=== PATIENT | male | born 1965 | race Caucasian/White ===

== ENCOUNTER 2017-01-11 10:47 | Day surgery (SDC) | payer MEDICAID ==
[~2017-01-11] VITALS: Ht 160 cm; Wt 86.2 kg
[2017-01-11] MEDS ORDERED: LIDOCAINE HCL/PF 2% 20 MG/ML 10ML VIAL ONE (14:00)
[2017-01-11] MEDS ORDERED: BALANCED SALT IRRIG SOLN 15ML ONE (14:00)
[2017-01-11] MEDS ORDERED: PREDNISOLONE ACETATE 1% OPHTH DROPS 1ML ONE (14:00)
[2017-01-11] MEDS ORDERED: CIPROFLOXACIN 0.3% OPHTH SOLN 2.5ML ONE (14:00)
[2017-01-11] MEDS ORDERED: BUPIVACAINE HCL/PF 0.75% (7.5MG/ML) 10ML ONE (14:00)
[2017-01-11] MEDS ORDERED: LIDOCAINE HCL 2%/EPINEPHRINE 1:100,000 20 ML VIAL INFIL ONE (14:00)
[2017-01-11] MEDS ORDERED: ATOR20TA65 PO (14:26)
[2017-01-11] MEDS ORDERED: LACTATED RINGERS 1,000 ML IV SCH (14:40)
[2017-01-11] MEDS ORDERED: MIDAZOLAM HCL 2 MG/2 ML VIAL ONE (17:20)
[2017-01-11] MEDS ORDERED: PROPOFOL 200MG/20ML VIAL IV ONE (17:20)
[2017-01-11] MEDS ORDERED: LIDOCAINE HCL 1% 20ML VIAL (Pyxis) INJ ONE (17:20)
[2017-01-11] MEDS ORDERED: FENTANYL CITRATE/PF 50MCG/ML 2ML VIAL ONE (17:20)
[2017-01-11] MEDS ORDERED: DIPHENHYDRAMINE 50MG/ML VIAL ONE (17:21)
[2017-01-11] MEDS ORDERED: MORPHINE SULFATE 4 MG/ML CPJ (NOT FOR IM USE) IV PRN (20:55)
== END 2017-01-11 18:45 | disposition home or self-care (01) ==
LOC: OR 10:47
PROVIDERS: ATTEND Ophthalmology
DX: H11.441 Conjunctival cysts, right eye (principal)
CPT/HCPCS: 68110; J1200; J2250; J3010; J3490; J7120; J2704